=== PATIENT | male | born 1995 | race African-American/Black ===

== ENCOUNTER 2016-10-03 10:01 | Emergency (ER) | payer SELFPAY ==
[2016-10-03 10:07] VITALS: BP 129/84
--- NOTE | 2016-10-03 10:08 | ER Document Report ---
HPI - HPI Patient complains to provider of: sore throat cough Onset: Other - thrusday Quality of pain: Achy Pain Level: 5 Context: 21 yo male c/o sore throat, head congestion, cough since . No fever or chills. generalized bodyaches. Associated Symptoms: None Exacerbated by: Denies Relieved by: Denies - ROS ROS below otherwise negative: Yes Systems Reviewed and Negative: Yes All other systems reviewed and negative - DERM Skin Color: Normal Past Medical History - General Information source: Patient - Social History Smoking Status: Unknown if Ever Smoked Frequency of alcohol use: None Drug Abuse: None Lives with: Family Family History: CAD, DM, Hyperlipidemia, Hypertension, Malignancy Patient has suicidal ideation: No Patient has homicidal ideation: No - Medical History Medical History: Negative Renal/ Medical History: Denies: Hx Peritoneal Dialysis Musculoskeltal Medical History: Reports Hx Musculoskeletal Trauma Traumatic Medical History: Reports: Hx Fractures - Left wrist Surgical Hx: Negative - Immunizations Hx Diphtheria, Pertussis, Tetanus Vaccination: Yes Vertical Provider Document - CONSTITUTIONAL Agree With Documented VS: Yes Exam Limitations: No Limitations General Appearance: No Apparent Distress - INFECTION CONTROL TRAVEL OUTSIDE OF THE [place] IN LAST 30 DAYS: No - HEENT HEENT: Normocephalic, Pharyngeal Erythema. negative: Conjuctival Injection, Tympanic Membrane Red - NECK Neck: Supple. negative: Lymphadenopathy-Left, Lymphadenopathy-Right - RESPIRATORY Respiratory: Breath Sounds Normal, No Respiratory Distress O2 Sat by Pulse Oximetry: 98 - CARDIOVASCULAR Cardiovascular: Regular Rate, Regular Rhythm - GI/ABDOMEN Gastrointestinal: Abdomen Soft, Abdomen Non-Tender - MUSCULOSKELETAL/EXTREMETIES Musculoskeletal/Extremeties: MAEW, FROM - NEURO Level of Consciousness: Awake, Alert, Appropriate - DERM Integumentary: Warm, Dry, No Rash Course - Vital Signs Vital signs: Temp Pulse Resp BP Pulse Ox 97.8 F 89 20 129/84 H 98 10/03/16 10:06 10/03/16 10:06 10/03/16 10:06 10/03/16 10:06 10/03/16 10:06 Discharge - Discharge Clinical Impression: upper respiratory infection Condition: Good Disposition: HOME, SELF-CARE Instructions: Upper Respiratory Illness ([facility]), Tessalon Perles ([facility]), Acetaminophen, Use of [id number] Ibuprofen ([facility]) Additional Instructions: plenty of fluids to er if worse stop smoking over the counter tylenol or motrin for discomfort Prescriptions: Benzonatate [Tessalon Perles 100 mg Capsule] 100 mg PO ASDIR PRN #40 capsule PRN Reason: Forms: Return to Work
[2016-10-03] MEDS ORDERED: BENZONATATE 100 MG CAPSULE PO ONE (10:15)
== END 2016-10-03 10:29 | disposition home or self-care (01) ==
LOC: ER 10:01
DX: J06.9 Acute upper respiratory infection, unspecified (principal); J02.9 Acute pharyngitis, unspecified; R05 Cough; R09.81 Nasal congestion
CPT/HCPCS: 99282

== ENCOUNTER 2016-10-05 09:22 | Emergency (ER) | payer SELFPAY ==
[2016-10-05 09:31] VITALS: BP 138/98
--- NOTE | 2016-10-05 10:08 | ER Document Report ---
HPI - HPI Patient complains to provider of: work note Onset: Other Pain Level: 3 Context: Patient presents today with he was seen here several days ago for upper respiratory infection, cough. He reports he has not filled his prescription yet but plans on doing it today because he got paid. Patient reports that his throat is a little bit sore. Patient also reports that he needs a work note. He reports that his why he is here to get a work note. Denies fever vomiting diarrhea. Wants a work note to go back today. Associated Symptoms: None Exacerbated by: Denies Relieved by: Denies Similar symptoms previously: Yes Recently seen / treated by doctor: Yes - DERM Skin Color: Normal Past Medical History - General Information source: Patient - Social History Smoking Status: Current Every Day Smoker Cigarette use (# per day): Yes Frequency of alcohol use: None Drug Abuse: None Family History: CAD, DM, Hyperlipidemia, Hypertension, Malignancy Patient has suicidal ideation: No Patient has homicidal ideation: No Renal/ Medical History: Denies: Hx Peritoneal Dialysis Musculoskeltal Medical History: Reports Hx Musculoskeletal Trauma Traumatic Medical History: Reports: Hx Fractures - Left wrist Surgical Hx: Negative - Immunizations Hx Diphtheria, Pertussis, Tetanus Vaccination: Yes Vertical Provider Document - CONSTITUTIONAL Agree With Documented VS: Yes Exam Limitations: No Limitations General Appearance: WD/WN, No Apparent Distress - INFECTION CONTROL TRAVEL OUTSIDE OF THE [place] IN LAST 30 DAYS: No - HEENT HEENT: Atraumatic, Normocephalic. negative: Pharyngeal Exudate, Pharyngeal Erythema - No peritonsillar abscess good clear voice no trismus - NECK Neck: Normal Inspection, Supple. negative: Lymphadenopathy-Left, Lymphadenopathy-Right - RESPIRATORY Respiratory: Breath Sounds Normal, No Respiratory Distress - no cough noted during entire assessment and interview O2 Sat by Pulse Oximetry: 99 - MUSCULOSKELETAL/EXTREMETIES Musculoskeletal/Extremeties: SABINO FLORES - NEURO Level of Consciousness: Awake, Alert, Appropriate Motor/Sensory: No Motor Deficit - DERM Integumentary: Warm, Dry Course - Re-evaluation Re-evalutation: 10/05/16 After I talked the patient and he admitted that his throat was still a little bit sore. He also admitted that he is here just for work note so I canceled the strep test. Patient looks good nontoxic no distress open his mouth wide clear voice no erythema/exudate. Patient instructed follow-up with primary care provider for any further needs. - Vital Signs Vital signs: Temp Pulse Resp BP Pulse Ox 98.4 F 68 14 138/98 H 99 10/05/16 09:29 10/05/16 09:29 10/05/16 09:29 10/05/16 09:29 10/05/16 09:29 Discharge - Discharge Clinical Impression: work note, Cough, Elevated blood pressure reading Condition: Stable Disposition: HOME, SELF-CARE Additional Instructions: *You have been evaluated for cough, work note *Increase fluid intake *Quit smoking *Take medication as prescribed *Follow up with a primary care provider within one week *Return to ED for worsening condition, changes, needs Monitor your blood pressure. Your blood pressure was elevated today. This may be because you were anxious, in pain or because you need medication. It is important to follow up with your primary care provider for full evaluation. Forms: Elevated Blood Pressure, Return to Work
== END 2016-10-05 10:20 | disposition home or self-care (01) ==
LOC: ER 09:22
DX: R05 Cough (principal); R03.0 Elevated blood-pressure reading, without diagnosis of hypertension; F17.210 Nicotine dependence, cigarettes, uncomplicated
CPT/HCPCS: 99283

== ENCOUNTER 2017-08-29 10:39 | Emergency (ER) | payer SELFPAY ==
[2017-08-29 10:47] VITALS: BP 128/81
[2017-08-29] MEDS ORDERED: ONDANSETRON 4 MG TAB.RAPDIS PO ONE (11:32)
--- NOTE | 2017-08-29 11:38 | ER Document Report ---
ED General - General Chief Complaint: Nausea/Vomiting/Diarrhea Stated Complaint: VOMITING Time Seen by Provider: 08/29/17 11:01 Mode of Arrival: Ambulatory Information source: Patient Notes: 22-year-old male presents with complaints of nausea vomiting diarrhea over the past day. Patient notes he has had multiple episodes. Denies any fevers or chills notes generalized cramping. Patient denies any blood in vomit or stool TRAVEL OUTSIDE OF THE [place] IN LAST 30 DAYS: No - HPI Onset: Yesterday Onset/Duration: Sudden Quality of pain: Cramping Severity: Mild Pain Level: 1 Associated symptoms: Diarrhea, Nausea, Vomiting Exacerbated by: Food - Patient notes he is able to hold down some food Relieved by: Denies Similar symptoms previously: No Recently seen / treated by doctor: No - Related Data Allergies/Adverse Reactions: Latex, Natural Rubber Allergy (Verified 10/05/16 09:29) Past Medical History - Social History Smoking Status: Current Every Day Smoker Cigarette use (# per day): Yes Chew tobacco use (# tins/day): Yes - 30 Smoking Education Provided: No Frequency of alcohol use: Occasional Drug Abuse: None Family History: CAD, DM, Hyperlipidemia, Hypertension, Malignancy Patient has suicidal ideation: No Patient has homicidal ideation: No Renal/ Medical History: Denies: Hx Peritoneal Dialysis Musculoskeltal Medical History: Reports Hx Musculoskeletal Trauma Traumatic Medical History: Reports: Hx Fractures - Left wrist - Immunizations Hx Diphtheria, Pertussis, Tetanus Vaccination: Yes Review of Systems - Review of Systems Notes: REVIEW OF SYSTEMS: CONSTITUTIONAL : Denies fever, chills, or sweats. Denies recent illness. EENT: Denies eye, ear, throat, or mouth pain or symptoms. Denies nasal or sinus congestion or discharge. Denies throat, tongue, or mouth swelling or difficulty swallowing. CARDIOVASCULAR: Denies chest pain. Denies palpitations or racing or irregular heart beat. Denies ankle edema. RESPIRATORY: Denies cough, cold, or chest congestion. Denies shortness of breath, difficulty breathing, or wheezing. GASTROINTESTINAL: Admits to nausea vomiting diarrhea GENITOURINARY: Denies difficulty urinating, painful urination, burning, frequency, blood in urine, or discharge. MUSCULOSKELETAL: Denies back or neck pain or stiffness. Denies joint pain or swelling. SKIN: Denies rash, lesions or sores. HEMATOLOGIC : Denies easy bruising or bleeding. LYMPHATIC: Denies swollen, enlarged glands. NEUROLOGICAL: Denies confusion or altered mental status. Denies passing out or loss of consciousness. Denies dizziness or lightheadedness. Denies headache. Denies weakness or paralysis or loss of use of either side. Denies problems with gait or speech. Denies sensory loss, numbness, or tingling. Denies seizures. PSYCHIATRIC: Denies anxiety or stress. Denies depression, suicidal ideation, or homicidal ideation. ALL OTHER SYSTEMS REVIEWED AND NEGATIVE. Dictation was performed using Svpp[employer] recognition software PHYSICAL EXAMINATION: GENERAL: Well-appearing, well-nourished and in no acute distress. HEAD: Atraumatic, normocephalic. EYES: Pupils equal round and reactive to light, extraocular movements intact, sclera anicteric, conjunctiva are normal. ENT: Nares patent, oropharynx clear without exudates. Moist mucous membranes. NECK: Normal range of motion, supple without lymphadenopathy LUNGS: Breath sounds clear to auscultation bilaterally and equal. No wheezes rales or rhonchi. HEART: Regular rate and rhythm without murmurs ABDOMEN: Soft, nontender, nondistended abdomen. No guarding, no rebound. No masses appreciated. Musculoskeletal: Normal range of motion, no pitting or edema. No cyanosis. NEUROLOGICAL: Cranial nerves grossly intact. Normal speech, normal gait. Normal sensory, motor exams PSYCH: Normal mood, normal affect. SKIN: Warm, Dry, normal turgor, no rashes or lesions noted. Physical Exam - Vital signs Vitals: Temp Pulse Resp BP Pulse Ox 98.5 F 59 L 16 128/81 H 100 08/29/17 10:45 08/29/17 10:45 08/29/17 10:45 08/29/17 10:45 08/29/17 10:45 Course - Re-evaluation Re-evalutation: 08/29/17 11:36 Patient overall appears well has no signs of dehydration, his vital signs are stable, he has had multiple episodes of nausea vomiting diarrhea, he was treated here with Zofran with improvement of symptoms, he will be given a work note and further nausea control for home After performing a Medical Screening Examination, I estimate there is LOW risk for ACUTE APPENDICITIS, BOWEL OBSTRUCTION, ACUTE CHOLECYSTITIS, PERFORATED DIVERTICULITIS, INCARCERATED HERNIA, PANCREATITIS, TESTICULAR TORSION or PERFORATED ULCER, thus I consider the discharge disposition reasonable. Also, there is no evidence or peritonitis, sepsis, or toxicity. I have reevaluated this patient multiple times and no significant life threatening changes are noted. The patient and I have discussed the diagnosis and risks, and we agree with discharging home with close follow-up with the understanding that symptoms and presentations can change. We also discussed returning to the Emergency Department immediately if new or worsening symptoms occur. We have discussed the symptoms which are most concerning (e.g., bloody stool, fever, changing or worsening pain, intractable vomiting - standard verbal up date) that necessitate immediate return. - Vital Signs Vital signs: Temp Pulse Resp BP Pulse Ox 98.5 F 59 L 16 128/81 H 100 08/29/17 10:45 08/29/17 10:45 08/29/17 10:45 08/29/17 10:45 08/29/17 10:45 Discharge - Discharge Clinical Impression: Nausea vomiting and diarrhea Condition: Stable Disposition: HOME, SELF-CARE Instructions: Nausea or Vomiting, Nonspecific ([facility]) Prescriptions: Metoclopramide HCl [Reglan 10 mg Tablet] 1 - 2 tab PO Q6 #25 tablet Forms: Return to Work
== END 2017-08-29 11:52 | disposition home or self-care (01) ==
LOC: ER 10:39
DX: R11.2 Nausea with vomiting, unspecified (principal); R19.7 Diarrhea, unspecified; F17.210 Nicotine dependence, cigarettes, uncomplicated; Z91.040 Latex allergy status
CPT/HCPCS: 99283; S0119

== ENCOUNTER 2017-09-28 17:27 | Emergency (ER) | payer SELFPAY ==
[2017-09-28 17:39] VITALS: BP 135/66
--- NOTE | 2017-09-28 17:58 | ER Document Report ---
HPI - HPI Pain Level: 4 Notes: Patient is a 22-year-old male with no significant past medical history who presents to the ED complaining of pain near the left third digit of the hand at the MCP joint of that digit status post injury while playing bascule. Patient states that he scraped and landed on the back of his hand and heard a "pop" to that MCP joint. Patient states that the pain does not radiate. 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 The pain does not radiate otherwise. Denies any drug allergies. Denies any headache, fever, head injury, neck pain, URI, sore throat, chest pain , palpitations, syncope, cough, shortness of breath, wheeze, dyspnea, abdominal pain, nausea/vomiting/diarrhea, urinary retention, dysuria, hematuria, numbness/ tingling, muscle paralysis/weakness, or rash. - ROS Systems Reviewed and Negative: Yes All other systems reviewed and negative - MUSCULOSKELETAL Musculoskeletal: REPORTS: Extremity pain - L hand Past Medical History - Social History Smoking Status: Never Smoker Family History: CAD, DM, Hyperlipidemia, Hypertension, Malignancy Patient has suicidal ideation: No Patient has homicidal ideation: No Renal/ Medical History: Denies: Hx Peritoneal Dialysis Musculoskeltal Medical History: Reports Hx Musculoskeletal Trauma Traumatic Medical History: Reports: Hx Fractures - Left wrist - Immunizations Hx Diphtheria, Pertussis, Tetanus Vaccination: Yes Vertical Provider Document - CONSTITUTIONAL Agree With Documented VS: Yes Notes: PHYSICAL EXAMINATION: GENERAL: Well-appearing, well-nourished and in no acute distress. LUNGS: Breath sounds clear to auscultation bilaterally and equal. No wheezes rales or rhonchi. HEART: Regular rate and rhythm without murmurs, rubs, gallops. Musculoskeletal: Left hand: LROM to passive/active of the 3rd MCP joint. Strength 4+/5. N/V intact distal. + tenderness to the MCP jt and prox phalange. No other bony tenderness to the hand. Extremities: No cyanosis, clubbing, or edema b/l. Peripheral pulses 2+. Capillary refill less than 3 seconds. NEUROLOGICAL: Normal speech, normal gait. Normal sensory, motor exams PSYCH: Normal mood, normal affect. SKIN: Warm, Dry, normal turgor, no rashes or lesions noted. - INFECTION CONTROL TRAVEL OUTSIDE OF THE [place] IN LAST 30 DAYS: No Course - Re-evaluation Re-evalutation: 09/28/17 18:08 Patient is an afebrile, well-hydrated, 20-year-old male who presents to the ED with left hand pain, suspect contusion based on H&P. Vitals are acceptable. PE is otherwise unremarkable for any neurovascular compress, obvious tendon/ ligament rupture, obvious fracture/dislocation, septic joint. X-ray unremarkable for any acute pathology. Ice was provided today. Patient declined any Tylenol or Motrin. No other labs or imaging warranted at this time based on H&P. I will send him home with some naproxen. Conservative measures otherwise for symptoms. Recheck with your PCM in 3-5 days. Consider consult orthopedics. Return to the ED with any worsening/concerning symptoms otherwise as reviewed discharge. Patient is in agreement. - Vital Signs Vital signs: Temp Pulse Resp BP Pulse Ox 98.3 F 63 14 135/66 H 98 09/28/17 17:37 09/28/17 17:37 09/28/17 17:37 09/28/17 17:37 09/28/17 17:37 Discharge - Discharge Clinical Impression: Hand pain, left Condition: Stable Disposition: HOME, SELF-CARE Additional Instructions: Rest, Ice, Compression, Elevation Tylenol/ibuprofen as needed Light stretches daily Strength exercises as able Moist heat and massage may help F/u with your PCP in 3-5 days for a recheck Consider consult(s) with Orthopedics/physical therapy for ongoing/worsening symptoms Return to the ED with any worsening symptoms and/or development of fever, headache, chest pain, palpitations, syncope, shortness of breath, trouble breathing, abdominal pain, n/v/d, muscle weakness/paralysis, numbness/tingling, swelling, redness, or other worsening symptoms that are concerning to you. Prescriptions: Naproxen 500 mg PO BID PRN #30 tablet PRN Reason: Forms: Elevated Blood Pressure Referrals: [facility] [Provider Group] - Follow up as needed
--- NOTE | 2017-09-28 18:03 | RADIOLOGY REPORT (SQ) ---
EXAM DESCRIPTION: HAND LEFT 3 VIEWS COMPLETED DATE/TIME: 09/28/2017 5:52 pm REASON FOR STUDY: Hand pain s/p injury COMPARISON: None. EXAM PARAMETERS: NUMBER OF VIEWS: Three views. TECHNIQUE: AP, lateral and oblique radiographic images acquired of the left hand. LIMITATIONS: None. FINDINGS: MINERALIZATION: Normal. BONES: No acute fracture or dislocation. No worrisome bone lesions. JOINTS: No effusions. SOFT TISSUES: No soft tissue swelling. No foreign body. OTHER: No other significant finding. IMPRESSION: NEGATIVE STUDY OF THE LEFT HAND. NO RADIOGRAPHIC EVIDENCE OF ACUTE INJURY. TECHNICAL DOCUMENTATION: JOB ID: [id number] [employer]- All Rights Reserved Reading location - IP/workstation name: [email or web address]
== END 2017-09-28 18:13 | disposition home or self-care (01) ==
LOC: ER 17:27
DX: M79.642 Pain in left hand (principal)
CPT/HCPCS: 99283